=== PATIENT | female | born 1935 | race Caucasian/White ===

== ENCOUNTER 2016-09-16 22:56 | Inpatient (IN) | payer MEDICARE, OTHER ==
[~2016-09-16] VITALS: Ht 157.5 cm; Wt 61.2 kg
[2016-09-17] MEDS ORDERED: MORPHINE SULFATE 4 MG/ML, 1ML ONE (00:22)
[2016-09-17] MEDS ORDERED: CLINDAMYCIN PMX 600MG/50ML 50 ML ONE (00:22)
[2016-09-17] MEDS ORDERED: MORPHINE SULFATE 4 MG/ML, 1ML IVPush PRN (00:30)
[2016-09-17] MEDS ORDERED: CLINDAMYCIN PMX 600MG/50ML 50 ML IV ONE (00:30)
[2016-09-17 00:56] LABS: ASPARTATE AMINO TRANSFERASE 16 U/L (15-37); BLOOD UREA NITROGEN 21 mg/dL (7-18)
[2016-09-17] MEDS ORDERED: CYAN500T42 PO (02:11)
[2016-09-17] MEDS ORDERED: SOLI5TAB PO (02:11)
[2016-09-17] MEDS ORDERED: DIPH1TAB PO (02:11)
[2016-09-17] MEDS ORDERED: ESTR10TA PO (02:11)
[2016-09-17] MEDS ORDERED: CHOL2000 PO (02:11)
[2016-09-17] MEDS ORDERED: [UNRECOGNIZED DRUG - OTHER] PO (02:11)
[2016-09-17] MEDS ORDERED: HYDR12.53 PO (02:11)
[2016-09-17] MEDS ORDERED: OS CAL PO (02:11)
[2016-09-17] MEDS ORDERED: POTA20PA8 PO (02:11)
[2016-09-17] MEDS ORDERED: LEVO50TA5 PO (02:11)
[2016-09-17] MEDS ORDERED: METH500T5 PO (02:11)
[2016-09-17] MEDS ORDERED: DIPHENOXYLATE/ATROPINE TABLET PO SCH (02:30)
[2016-09-17] MEDS ORDERED: NS + 20MEQ KCL 1,000 ML IV SCH (02:31)
[2016-09-17] MEDS ORDERED: morphine SULFATE 10 MG/ML, 1ML IVPush PRN (03:00)
[2016-09-17] MEDS ORDERED: POLYETHYLENE GLYCOL 17 GM PACKET PO PRN (03:00)
[2016-09-17] MEDS ORDERED: DOCUSATE 100 MG CAPSULE PO PRN (03:00)
[2016-09-17] MEDS ORDERED: ACETAMINOPHEN 325 MG TABLET PO PRN (03:00)
[2016-09-17] MEDS ORDERED: ONDANSETRON 2MG/ML, 2ML IVPush PRN (03:00)
[2016-09-17 03:32] VITALS: BP 101/57
[2016-09-17] MEDS: ENOXAPARIN 30 MG/0.3 ML SQ SCH (04:42)
[2016-09-17] MEDS: CLINDAMYCIN PMX 600MG/50ML 50 ML IV SCH ×3 (06:34→22:10)
[2016-09-17] MEDS: LEVOTHYROXINE 50 MCG TABLET PO SCH (06:34)
[2016-09-17 08:30] VITALS: BP 106/55
[2016-09-17] MEDS: ESTRADIOL 10 MCG HOMEMEDPO SCH (09:00)
[2016-09-17] MEDS ORDERED: POTASSIUM CHLORIDE 20 MEQ PACKET PO SCH (09:00)
[2016-09-17] MEDS ORDERED: VANCOMYCIN PER PHARMACY MC PRN (10:00)
[2016-09-17] MEDS ORDERED: PHARMACOKINETIC MONITORING MC PRN (10:30)
[2016-09-17] MEDS ORDERED: PHARMACOKINETIC CONSULTATION MC ONE (10:30)
[2016-09-17] MEDS: OXYBUTYNIN CHLORIDE 5 MG TABLET PO SCH ×2 (10:46→22:10)
[2016-09-17] MEDS: SENNA/DOCUSATE TABLET PO SCH (10:46)
[2016-09-17] MEDS: CEFTRIAXONE PMX 1GM/50ML 50 ML IV SCH (10:59)
[2016-09-17] MEDS ORDERED: GADOBUTROL 7.5 MMOL/7.5 ML PFS ONE (11:53)
[2016-09-17] MEDS: VANCOMYCIN PMX 1GM/200ML 200 ML IVPB SCH (13:15)
[2016-09-17 14:01] VITALS: BP 101/64
[2016-09-17 20:12] VITALS: BP 108/65
[2016-09-18 02:31] VITALS: BP 101/59
[2016-09-18] MEDS: ENOXAPARIN 30 MG/0.3 ML SQ SCH (02:45)
[2016-09-18] MEDS: CLINDAMYCIN PMX 600MG/50ML 50 ML IV SCH ×4 (03:28→21:11)
[2016-09-18] MEDS: LEVOTHYROXINE 50 MCG TABLET PO SCH (05:38)
[2016-09-18 05:52] LABS: ASPARTATE AMINO TRANSFERASE 15 U/L (15-37); BLOOD UREA NITROGEN 22 mg/dL (7-18)
[2016-09-18 07:30] VITALS: BP 103/51
[2016-09-18] MEDS: OXYBUTYNIN CHLORIDE 5 MG TABLET PO SCH ×2 (07:30→20:42)
[2016-09-18] MEDS ORDERED: MAGNESIUM SULFATE PMX 2GM/50ML 50 ML IV ONE (08:00)
[2016-09-18] MEDS: SENNA/DOCUSATE TABLET PO SCH (09:00)
[2016-09-18] MEDS: POTASSIUM CHLORIDE 20 MEQ PACKET PO SCH (09:25)
[2016-09-18] MEDS: CEFTRIAXONE PMX 1GM/50ML 50 ML IV SCH (10:59)
[2016-09-18] MEDS: VANCOMYCIN PMX 1GM/200ML 200 ML IVPB SCH (11:52)
[2016-09-18] MEDS: MAGNESIUM OXIDE 400 MG TABLET PO SCH (12:56)
[2016-09-18 13:16] VITALS: BP 98/48
[2016-09-18 19:53] VITALS: BP 121/73
[2016-09-18] MEDS: DIPHENOXYLATE/ATROPINE TABLET PO PRN (21:12)
[2016-09-19 01:51] VITALS: BP 128/70
[2016-09-19] MEDS ORDERED: ENOXAPARIN 40 MG/0.4 ML SQ SCH (03:00)
[2016-09-19] MEDS: CLINDAMYCIN PMX 600MG/50ML 50 ML IV SCH ×3 (03:39→15:53)
[2016-09-19 05:40] LABS: BLOOD UREA NITROGEN 17 mg/dL (7-18)
[2016-09-19] MEDS: LEVOTHYROXINE 50 MCG TABLET PO SCH (06:16)
[2016-09-19 08:11] VITALS: BP 130/73
[2016-09-19] MEDS: OXYBUTYNIN CHLORIDE 5 MG TABLET PO SCH (09:00)
[2016-09-19] MEDS: SENNA/DOCUSATE TABLET PO SCH (09:00)
[2016-09-19] MEDS: POTASSIUM CHLORIDE 20 MEQ PACKET PO SCH (09:00)
[2016-09-19] MEDS: ESTRADIOL 10 MCG HOMEMEDPO SCH (09:00)
[2016-09-19] MEDS: MAGNESIUM OXIDE 400 MG TABLET PO SCH (09:00)
[2016-09-19] MEDS: CEFTRIAXONE PMX 1GM/50ML 50 ML IV SCH (10:58)
[2016-09-19] MEDS: VANCOMYCIN PMX 1GM/200ML 200 ML IVPB SCH (11:50)
[2016-09-19] MEDS: DIPHENOXYLATE/ATROPINE TABLET PO PRN (12:28)
[2016-09-19 12:58] VITALS: BP 116/61
[2016-09-19] MEDS ORDERED: ACID1TAB7 PO (19:38)
[2016-09-19] MEDS ORDERED: CEFD300C37 PO (19:38)
[2016-09-19] MEDS ORDERED: MUPI15CR TD (19:38)
[2016-09-19] MEDS ORDERED: SULF1TAB3 PO (19:38)
[2016-09-19] MEDS ORDERED: MAGN400T26 PO (19:38)
[2016-09-19 19:53] VITALS: BP 173/76
[2016-09-19] MEDS ORDERED: LACTOBACILLUS CHEW TABLET PO SCH (21:00)
[2016-09-19] MEDS ORDERED: SULFAMETH./TRIMETHOPRIM DS 800MG/160MG TABLET PO SCH (21:00)
[2016-09-19] MEDS ORDERED: CEFDINIR 300 MG CAPSULE PO SCH (21:00)
== END 2016-09-20 07:00 | disposition home or self-care (01) | DRG 579 ==
LOC: ED 23:59 → EDIP 09-17 02:01 → SUATTDRO 09-17 02:19 → 4NOR 09-17 03:14
PROVIDERS: ADMIT Family Medicine; ATTEND Internal Medicine
PROC: 0KBV0ZZ Excision of Right Foot Muscle, Open Approach (ICD-10-PCS; principal; 2016-09-19)
DX: L03.115 Cellulitis of right lower limb (principal); N17.0 Acute kidney failure with tubular necrosis; L02.611 Cutaneous abscess of right foot; L97.519 Non-pressure chronic ulcer of other part of right foot with unspecified severity; E03.9 Hypothyroidism, unspecified; E87.6 Hypokalemia; S91.301A Unspecified open wound, right foot, initial encounter; I10 Essential (primary) hypertension; M19.90 Unspecified osteoarthritis, unspecified site; E86.0 Dehydration; E83.42 Hypomagnesemia; R19.7 Diarrhea, unspecified; G62.9 Polyneuropathy, unspecified; Z79.899 Other long term (current) drug therapy; Z88.0 Allergy status to penicillin; Z88.5 Allergy status to narcotic agent; Z91.041 Radiographic dye allergy status; Z83.3 Family history of diabetes mellitus
CPT/HCPCS: 36415; 80048; 80053; 83605; 83735; 84100; 84145; 85025; 85651; 87040; 87070; 87077; 87186; 87205; 87324; 96365; 96375; A9585; J0696; J1650; J3370; J3480; J3475

== ENCOUNTER 2019-04-02 13:34 | Inpatient (IN) | payer MEDICARE ==
[~2019-04-02] VITALS: Ht 157.5 cm; Wt 67.7 kg
[~2019-04-02 13:34] MED LIST: ACID1TAB7 PO; CEFD300C37 PO; CHOL2000 PO; CYAN500T42 PO; DIPH1TAB PO; ESTR10TA PO; HYDR12.517 PO; LEVO50TA5 PO; MAGN400T26 PO; METH500T5 PO; MUPI15CR TD; OS CAL PO; POTA20PA25 PO; SOLI5TAB2 PO; SULF-169 PO; SULF1TAB23 PO; [UNRECOGNIZED DRUG - OTHER] PO
[2019-04-02 14:35] LABS: BASOPHILS # (AUTO) 0.07 x10^3/uL (0-0.1); BASOPHILS % (AUTO) 1 % (0-1); EOSINOPHILS # (AUTO) 0.07 x10^3/uL (0-0.4); EOSINOPHILS % (AUTO) 1 % (1-7); LYMPHOCYTES # (AUTO) 1.73 x10^3/uL (1-3.4); LYMPHOCYTES % (AUTO) 24 % (22-44); MD NO; MEAN CORPUSCULAR HEMOGLOBIN 30.1 pg (27.0-34.8); MEAN CORPUSCULAR HGB CONC 33.2 g/dL (32.4-35.8); MEAN CORPUSCULAR VOLUME 90.4 fL (80-100); MEAN PLATELET VOLUME 7.7 fL (7.4-10.4); MONOCYTES % (AUTO) 8 % (2-9); NEUTROPHILS # (AUTO) 4.73 x10^3/uL (1.8-6.8); NEUTROPHILS % (AUTO) 66 % (42-75); PLATELET COUNT 393 x10^3/uL (130-400); RED BLOOD COUNT 4.18 x10^6/uL (3.82-5.3)
[2019-04-02 14:46] LABS: ALANINE AMINOTRANSFERASE 11 U/L (12-78); ALBUMIN 2.9 g/dL (3.4-5.0); ANION GAP 7 mmol/L (5-15); CALCIUM 8.7 mg/dL (8.5-10.1); CHLORIDE 108 mmol/L (98-107); CREATININE 0.87 mg/dL (0.55-1.02)
[2019-04-02 14:50] LABS: ALKALINE PHOSPHATASE 121 U/L (45-117); BILIRUBIN,TOTAL 0.4 mg/dL (0.2-1.0); TOTAL PROTEIN 7.2 g/dL (6.4-8.2); TROPONIN I < 0.015 ng/mL (0.000-0.045)
--- NOTE | 2019-04-02 14:53 | NUR ---
URINE COLLECTED VIA STRAIGHT CATH AND SENT TO LAB.
[2019-04-02] MEDS ORDERED: MECLIZINE CHEWABLE 25 MG TAB ONE (14:54)
[2019-04-02] MEDS ORDERED: MECLIZINE CHEWABLE 25 MG TAB PO ONE (15:00)
--- NOTE | 2019-04-02 15:00 | NUR ---
THIS IS AN 83 YO F W/ C/O DIZZINESS X2 DAYS. WORSENS WHEN STANDING. DENIES CP/SOB. RESP EVEN AND UNLABORED. VS STABLE. NADN. A&OX2 BASELINE. FAMILY AT BEDSIDE FOR HX. CALL LIGHT INR EACH. DENIES FURTHER NEEDS AT THIS TIME.
[2019-04-02 15:35] LABS: CULTURE INDICATED? YES; MICROSCOPIC INDICATED
--- NOTE | 2019-04-02 15:53 | NUR ---
ORTHOSTATIC VITALS DONE BY MAURIZIO BODY SHOP TECHNICIAN. PT RESTING ON [facility] AWAITING RESULTS.
--- NOTE | 2019-04-02 15:59 | NUR ---
ORTHOSTATIC VITALS GIVEN TO DR. SUMMERS.
[2019-04-02] MEDS ORDERED: CEFTRIAXONE PMX 1GM/50ML 50 ML IVPB ONE (16:30)
--- NOTE | 2019-04-02 16:32 | NUR ---
PT AND FAMILY AWARE OF POC FOR DC AND ARE AGREEABLE.
--- NOTE | 2019-04-02 16:51 | NUR ---
PT FAMILY AND ERP SPOKE ABOUT PT CONDITION AND DECIDED TO HAVE PT ADMITTED FOR IV ABX. PT STATES SHE WILL STAY FOR ONE NIGHT BUT IS REFUSING TO PUT HOPSITAL GOWN ON BUT WILL ALLOW RESTART PIV.
[2019-04-02] MEDS ORDERED: DONE10TA56 PO (17:13)
[2019-04-02] MEDS ORDERED: TRIA1TAB3 PO (17:13)
[2019-04-02] MEDS ORDERED: OMEP-110 PO (17:13)
--- NOTE | 2019-04-02 17:21 | NUR ---
REPORT GIVEN TO ANNABEL KNUTSON RN. ALL QUESTIONS ANSWERED. AWAITING PT TRANSPORT.
[2019-04-02] MEDS ORDERED: CEFTRIAXONE PMX 1GM/50ML 50 ML ONE (17:24)
[2019-04-02 17:37] VITALS: BP 128/72
[2019-04-02] MEDS ORDERED: ENALAPRILAT 1.25 MG/ML, 2ML IVPush PRN (18:30)
[2019-04-02] MEDS ORDERED: MECLIZINE 12.5 MG TABLET PO PRN (18:30)
[2019-04-02] MEDS ORDERED: TRAZODONE 50MG TABLET PO PRN (18:30)
[2019-04-02] MEDS ORDERED: LIDODERM 5% PATCH TD PRN (18:30)
[2019-04-02] MEDS ORDERED: ONDANSETRON ODT 4 MG PO PRN (18:30)
[2019-04-02] MEDS ORDERED: DOCUSATE 100 MG CAPSULE PO PRN (18:30)
[2019-04-02] MEDS ORDERED: ACETAMINOPHEN 325 MG TABLET PO PRN (18:30)
[2019-04-02] MEDS ORDERED: DIPHENOXYLATE/ATROPINE TABLET PO SCH (18:30)
[2019-04-02 19:22] VITALS: BP 152/66
[2019-04-02] MEDS: POTASSIUM CHLORIDE 20 MEQ PACKET PO SCH (20:07)
[2019-04-02] MEDS: DONEPEZIL 10 MG TABLET PO SCH (20:07)
[2019-04-02] MEDS: ENOXAPARIN 40 MG/0.4 ML SQ SCH (20:07)
[2019-04-02 20:28] VITALS: BP_SYST 154; BP_SYST 173; BP_SYST 182; BP_DIAS 105; BP_DIAS 110; BP_DIAS 83
[2019-04-02] MEDS: OMEPRAZOLE 20 MG CAPSULE.DR PO SCH (21:23)
[2019-04-03] MEDS ORDERED: FLU VACC QS2019-20 36MOS UP/PF 0.5 ML IM-VACC ONE (00:30)
[2019-04-03 01:30] VITALS: BP 131/70
[2019-04-03] MEDS: LIDODERM REMOVE PATCH NOTE XX SCH (05:02)
[2019-04-03 05:18] LABS: CALCIUM 8.6 mg/dL (8.5-10.1); CHLORIDE 108 mmol/L (98-107)
[2019-04-03 05:21] LABS: ANION GAP 8 mmol/L (5-15); CREATININE 0.98 mg/dL (0.55-1.02)
[2019-04-03 05:23] LABS: BASOPHILS # (AUTO) 0.07 x10^3/uL (0-0.1); BASOPHILS % (AUTO) 1 % (0-1); EOSINOPHILS # (AUTO) 0.15 x10^3/uL (0-0.4); EOSINOPHILS % (AUTO) 2 % (1-7); LYMPHOCYTES # (AUTO) 3.49 x10^3/uL (1-3.4); LYMPHOCYTES % (AUTO) 41 % (22-44); MD NO; MEAN CORPUSCULAR HEMOGLOBIN 29.8 pg (27.0-34.8); MEAN CORPUSCULAR HGB CONC 33.1 g/dL (32.4-35.8); MEAN CORPUSCULAR VOLUME 90.1 fL (80-100); MONOCYTES # (AUTO) 0.84 x10^3/uL (0.2-0.8); MONOCYTES % (AUTO) 10 % (2-9); NEUTROPHILS # (AUTO) 3.99 x10^3/uL (1.8-6.8); NEUTROPHILS % (AUTO) 47 % (42-75); PLATELET COUNT 381 x10^3/uL (130-400); RED BLOOD COUNT 4.04 x10^6/uL (3.82-5.3); RED CELL DISTRIBUTION WIDTH 14.7 % (9.6-15.2)
[2019-04-03] MEDS: CEFTRIAXONE PMX 1GM/50ML 50 ML IV SCH ×2 (06:12→18:01)
[2019-04-03] MEDS: LEVOTHYROXINE 50 MCG TABLET PO SCH (06:12)
[2019-04-03] MEDS: OXYBUTYNIN CHLORIDE 5 MG TABLET PO SCH ×3 (08:11→20:07)
[2019-04-03] MEDS: POTASSIUM CHLORIDE 20 MEQ PACKET PO SCH ×2 (08:12→20:04)
[2019-04-03] MEDS: CYANOCOBALAMIN 1,000 MCG TABLET PO SCH (08:13)
[2019-04-03] MEDS: TRIAMTERENE-HCTZ 37.5/25 MG TABLET PO SCH (08:13)
[2019-04-03] MEDS: CHOLECALCIFEROL 1,000 UNIT TABLET PO SCH (08:13)
[2019-04-03] MEDS: MAGNESIUM OXIDE 400 MG TABLET PO SCH (08:13)
[2019-04-03] MEDS ORDERED: OMEPRAZOLE 20 MG CAPSULE.DR PO SCH (09:00)
[2019-04-03 09:25] VITALS: BP_SYST 111; BP_SYST 134; BP_SYST 152; BP_DIAS 66; BP_DIAS 77; BP_DIAS 84
[2019-04-03 12:15] VITALS: BP_SYST 123; BP_SYST 134; BP_SYST 138; BP_DIAS 66; BP_DIAS 75; BP_DIAS 82
[2019-04-03] MEDS: SODIUM CHLORIDE 0.9% 500 ML IV SCH ×2 (12:46→23:34)
[2019-04-03] MEDS ORDERED: LOPERAMIDE 2 MG CAPSULE PO ONE (18:30)
[2019-04-03] MEDS ORDERED: LOPERAMIDE 2 MG CAPSULE PO PRN (18:30)
[2019-04-03 19:29] VITALS: BP_SYST 157; BP_SYST 159; BP_SYST 163; BP_DIAS 79; BP_DIAS 83; BP_DIAS 85
[2019-04-03] MEDS: OMEPRAZOLE 20 MG CAPSULE.DR PO SCH (20:06)
[2019-04-03] MEDS: ENOXAPARIN 40 MG/0.4 ML SQ SCH (20:06)
[2019-04-03] MEDS: DONEPEZIL 10 MG TABLET PO SCH (20:06)
[2019-04-04 03:55] VITALS: BP_SYST 140; BP_SYST 161; BP_SYST 171; BP_DIAS 69; BP_DIAS 80; BP_DIAS 83
[2019-04-04] MEDS: LEVOTHYROXINE 50 MCG TABLET PO SCH (06:05)
[2019-04-04] MEDS: CEFTRIAXONE PMX 1GM/50ML 50 ML IV SCH (06:06)
[2019-04-04] MEDS: SODIUM CHLORIDE 0.9% 500 ML IV SCH (06:06)
[2019-04-04] MEDS: LIDODERM REMOVE PATCH NOTE XX SCH (06:09)
[2019-04-04 07:15] VITALS: BP 131/66
[2019-04-04] MEDS: CHOLECALCIFEROL 1,000 UNIT TABLET PO SCH (08:21)
[2019-04-04] MEDS: TRIAMTERENE-HCTZ 37.5/25 MG TABLET PO SCH (08:22)
[2019-04-04] MEDS: OMEPRAZOLE 20 MG CAPSULE.DR PO SCH (08:22)
[2019-04-04] MEDS: POTASSIUM CHLORIDE 20 MEQ PACKET PO SCH (08:22)
[2019-04-04] MEDS: CYANOCOBALAMIN 1,000 MCG TABLET PO SCH (08:22)
[2019-04-04] MEDS: OXYBUTYNIN CHLORIDE 5 MG TABLET PO SCH (08:22)
[2019-04-04] MEDS: MAGNESIUM OXIDE 400 MG TABLET PO SCH (08:22)
[2019-04-04] MEDS ORDERED: CEFD300C37 PO (09:09)
== END 2019-04-04 10:42 | disposition home or self-care (01) | DRG 690 ==
LOC: ED 14:32 → EDIP 16:44 → 3N 17:48 → DCLOUNGE 04-04 10:35
PROVIDERS: ADMIT Internal Medicine Infectious Disease; ATTEND Internal Medicine Infectious Disease
DX: N30.90 Cystitis, unspecified without hematuria (principal); H81.10 Benign paroxysmal vertigo, unspecified ear; E03.9 Hypothyroidism, unspecified; F03.90 Unspecified dementia, unspecified severity, without behavioral disturbance, psychotic disturbance, mood disturbance, and anxiety; I10 Essential (primary) hypertension; N32.81 Overactive bladder
CPT/HCPCS: 36415; 80048; 80053; 81001; 83605; 84443; 84484; 85025; 87040; 87077; 87086; 87186; 90686; 93005; 99285; G0378; J0696; J1650; J7040

== ENCOUNTER 2019-12-19 11:28 | Inpatient (IN) | payer MEDICARE ==
[~2019-12-19] VITALS: Ht 157.5 cm; Wt 78.0 kg
[~2019-12-19 11:28] MED LIST changes: +ANTIVERT PO; +ASPI-515 PO; +AZIT500T PO; +BUSP5TAB2 PO; +CRAN200C2 PO; +DONE10TA56 PO; +L.AC1CAP6 PO; +MECL12.581 PO; +OMEP-110 PO; +SOLI10TA2 PO; +TRIA1TAB3 PO
--- NOTE | 2019-12-19 11:41 | NUR ---
PT BIB EMS FOR WEAKNESS. PT WAS TREATED A MONTH AGO FOR BLADDER INFECTION. PT INCONTINET OF URINE UPON ARRIVAL. PT URINE WAS FOUL SMELLING. PT NORMALLY AMBULATORY AND WAS UNABLE TO STAND TODAY. PT HAS HX OF DEMENTIA AND PER REMSA AOX2 IS HER BASELINE. DAUGHTER IS PRESENT. PT CLEANED. MD IS BEDSIDE FOR ASSESSMENT.
--- NOTE | 2019-12-19 11:47 | NUR ---
pt's straight cath'd using sterile technique at this time. pt tolerated well. this rn walked to lab for ua.
[2019-12-19] MEDS ORDERED: ACETAMINOPHEN 650 MG SUPP ONE (11:55)
[2019-12-19] MEDS ORDERED: CEFTRIAXONE PMX 1GM/50ML 50 ML ONE (11:55)
[2019-12-19 11:58] LABS: MICROSCOPIC INDICATED
[2019-12-19] MEDS ORDERED: CEFTRIAXONE PMX 1GM/50ML 50 ML IVPB ONE (12:00)
[2019-12-19] MEDS ORDERED: SODIUM CHLORIDE 0.9% 1,000ML IVBOLUS ONE (12:00)
[2019-12-19] MEDS ORDERED: ACETAMINOPHEN 650 MG SUPP PR ONE (12:00)
--- NOTE | 2019-12-19 12:14 | NUR ---
PT MEDICATED PER EMAR. NS AND ABX INFUSING AT THIS TIME AFTER BC X 2. PT TOLERATED WELL.
[2019-12-19 12:24] LABS: BASOPHILS % (AUTO) 0 % (0-1); EOSINOPHILS % (AUTO) 0 % (1-7); LYMPHOCYTES % (AUTO) 10 % (22-44); MEAN CORPUSCULAR HEMOGLOBIN 29.3 pg (27.0-34.8); MEAN CORPUSCULAR HGB CONC 32.8 g/dL (32.4-35.8); MEAN PLATELET VOLUME 7.3 fL (7.4-10.4); MONOCYTES % (AUTO) 12 % (2-9); NEUTROPHILS % (AUTO) 77 % (42-75); PLATELET COUNT 400 x10^3/uL (130-400); RED BLOOD COUNT 4.58 x10^6/uL (3.82-5.3); RED CELL DISTRIBUTION WIDTH 15.3 % (9.6-15.2)
[2019-12-19 12:33] LABS: MD NO
[2019-12-19 12:54] LABS: ALANINE AMINOTRANSFERASE 16 U/L (12-78); ALBUMIN 3.2 g/dL (3.4-5.0); ANION GAP 8 mmol/L (5-15); CHLORIDE 105 mmol/L (98-107)
[2019-12-19 12:56] LABS: ALKALINE PHOSPHATASE 151 U/L (45-117); BILIRUBIN,TOTAL 0.5 mg/dL (0.2-1.0); TOTAL PROTEIN 8.3 g/dL (6.4-8.2)
--- NOTE | 2019-12-19 13:20 | NUR ---
pt resting in gurney. resps even and unlabored. bp/spo2 monitors in place. call light within reach. family at bedside.
[2019-12-19] MEDS ORDERED: ACETAMINOPHEN 325 MG TABLET PO PRN (14:00)
[2019-12-19] MEDS ORDERED: ONDANSETRON ODT 4 MG PO PRN (14:00)
[2019-12-19] MEDS ORDERED: MELATONIN 5 MG TABLET PO PRN (14:00)
[2019-12-19] MEDS: ENOXAPARIN 40 MG/0.4 ML SQ SCH (14:00)
[2019-12-19] MEDS ORDERED: ONDANSETRON 2MG/ML, 2ML IVPush PRN (14:00)
[2019-12-19] MEDS ORDERED: DIPHENOXYLATE/ATROPINE TABLET PO PRN (14:00)
[2019-12-19] MEDS ORDERED: ENOXAPARIN 40 MG/0.4 ML ONE (14:03)
--- NOTE | 2019-12-19 14:25 | NUR ---
pt medicated per emar. pt tolerated well. resps even and unlabored. bp/spo2 monitors in place. call light within reach.
--- NOTE | 2019-12-19 15:25 | NUR ---
pt resting in gurney. resps even and unlabored. family at bedside.
--- NOTE | 2019-12-19 16:53 | NUR ---
pt resting in gurney. resps even and unlabored. family at bedside.
--- NOTE | 2019-12-19 17:28 | NUR ---
hospital bed ordered at this time.
[2019-12-19] MEDS: SODIUM CHLORIDE 0.9% 1,000 ML IV SCH (18:00)
[2019-12-19] MEDS ORDERED: ACETAMINOPHEN 325 MG TABLET ONE ×2 (18:11→18:46)
--- NOTE | 2019-12-19 18:23 | NUR ---
pt resting in hospital bed at this time. resps even and unlabored. bp/spo2 monitors in place. call light within reach. pt's daughter at bedside.
--- NOTE | 2019-12-19 18:24 | NUR ---
diet tray ordered at this time.
--- NOTE | 2019-12-19 19:01 | NUR ---
report given to karla loya.
--- NOTE | 2019-12-19 19:08 | NUR ---
Report received from RUDDY Valencia. This RN to assume care.
--- NOTE | 2019-12-19 19:53 | NUR ---
Patient resting in hospital bed with no complaints. Daughter at bedside. Patient did not eat meal; states she is not hungry at this time. Cleaned up patient's room. Initiated fluids per may. Provided water.
[2019-12-20] MEDS: MECLIZINE 12.5 MG TABLET PO SCH ×3 (00:32→20:48)
[2019-12-20] MEDS: DONEPEZIL 10 MG TABLET PO SCH ×2 (00:32→20:47)
[2019-12-20] MEDS: POTASSIUM CHLORIDE 10 MEQ TABLET.ER PO SCH ×3 (00:33→20:47)
[2019-12-20] MEDS: BUSPIRONE 5 MG TABLET PO SCH ×3 (00:33→20:47)
--- NOTE | 2019-12-20 00:33 | NUR ---
Multiple attempts to admin patient's meds. Attempted to crush them and put them in apple sauce and pudding. Patient continuously refusing.
--- NOTE | 2019-12-20 02:09 | NUR ---
Patient sleeping in hospital bed. Respirations even and unlabored.
--- NOTE | 2019-12-20 03:00 | NUR ---
Patient c/o being cold. Provided bear paw and extra blankets.
[2019-12-20] MEDS: SODIUM CHLORIDE 0.9% 1,000 ML IV SCH ×3 (04:00→22:08)
[2019-12-20 04:22] LABS: BASOPHILS % (AUTO) 1 % (0-1); EOSINOPHILS % (AUTO) 0 % (1-7); LYMPHOCYTES % (AUTO) 8 % (22-44); MEAN CORPUSCULAR HEMOGLOBIN 29.4 pg (27.0-34.8); MEAN CORPUSCULAR HGB CONC 32.5 g/dL (32.4-35.8); MEAN PLATELET VOLUME 7.2 fL (7.4-10.4); MONOCYTES % (AUTO) 10 % (2-9); NEUTROPHILS % (AUTO) 82 % (42-75); PLATELET COUNT 357 x10^3/uL (130-400); RED BLOOD COUNT 4.17 x10^6/uL (3.82-5.3); RED CELL DISTRIBUTION WIDTH 15.6 % (9.6-15.2)
[2019-12-20 04:24] LABS: MD NO
[2019-12-20 04:33] LABS: ALANINE AMINOTRANSFERASE 17 U/L (12-78); ALBUMIN 2.7 g/dL (3.4-5.0); ANION GAP 7 mmol/L (5-15); CALCIUM 8.4 mg/dL (8.5-10.1); CHLORIDE 110 mmol/L (98-107); CREATININE 1.05 mg/dL (0.55-1.02)
[2019-12-20 04:35] LABS: ALKALINE PHOSPHATASE 125 U/L (45-117); BILIRUBIN,TOTAL 0.4 mg/dL (0.2-1.0); TOTAL PROTEIN 7.3 g/dL (6.4-8.2)
--- NOTE | 2019-12-20 04:43 | NUR ---
Patient repeatedly saying, "help me." Per daughter, that is normal for patient. Provided drinks to patient and reassured her.
[2019-12-20] MEDS: LEVOTHYROXINE 50 MCG TABLET PO SCH (06:19)
--- NOTE | 2019-12-20 06:20 | NUR ---
Patient compliant with 6am med. Provided tea. Patient resting in hospital bed with no complaints. Respirations even and unlabored.
--- NOTE | 2019-12-20 06:46 | NUR ---
BEDSIDE REPORT RECEIVED FROM RAMONA FOX
--- NOTE | 2019-12-20 07:03 | NUR ---
PT SITTING UPRIGHT ON HOSPITAL BED, PT DENIES ANY NEEDS AT THIS TIME. PT IN NAD. FALL PRECAUTIONS IN PLACE. CALL LIGHT AND PERSONAL BELONGINGS WITHIN REACH. WILL CONTIUE TO MONITOR.
[2019-12-20] MEDS ORDERED: OMEPRAZOLE 20 MG CAPSULE.DR ONE (07:43)
[2019-12-20] MEDS: OMEPRAZOLE 20 MG CAPSULE.DR PO SCH (07:55)
--- NOTE | 2019-12-20 08:01 | NUR ---
PT SITTING UPRIGHT ON HOSPITAL BED AND GIVEN BREAKFAST TRAY, PT DENIES ANY NEEDS AT THIS TIME. PT IN NAD. FALL PRECAUTIONS IN PLACE. CALL LIGHT AND PERSONAL BELONGINGS WITHIN REACH. WILL CONTIUE TO MONITOR.
[2019-12-20] MEDS: ASPIRIN 81 MG TABLET EC PO SCH (08:40)
[2019-12-20] MEDS ORDERED: ASPIRIN 81 MG TABLET EC ONE (08:40)
--- NOTE | 2019-12-20 09:00 | NUR ---
PT SITTING UPRIGHT ON HOSPITAL BED, PT DENIES ANY NEEDS AT THIS TIME. PT DID NOT WANT ANY OF BREAKFAST TRAY. PT IN NAD. FALL PRECAUTIONS IN PLACE. CALL LIGHT AND PERSONAL BELONGINGS WITHIN REACH. WILL CONTIUE TO MONITOR.
--- NOTE | 2019-12-20 10:02 | NUR ---
PT SITTING UPRIGHT ON HOSPITAL BED WITH EYES CLOSED, PT DENIES ANY NEEDS AT THIS TIME. PURE WICK IN PLACE. PT IN NAD. FALL PRECAUTIONS IN PLACE. CALL LIGHT AND PERSONAL BELONGINGS WITHIN REACH. WILL CONTIUE TO MONITOR.
--- NOTE | 2019-12-20 11:04 | NUR ---
PT UPRIGHT ON HOSPITAL BED WITH GRANDDAUGHTER AT BEDSIDE. PT DID NOT EAT ANY OF HER BREAKFAST MEAL TRAY, PT FAMILY WILL BRING IN PATIENTS FAVORITE SOUP SO SHE WILL EAT. PT PROVIDED FRESH BLANKET. DENIES ANY OTHER NEEDS AT THIS TIME. CALL LIGHT AND PERSONAL BELONGINGS WITHIN REACH. WILL CONTINUE TO MONITOR.
--- NOTE | 2019-12-20 11:48 | NUR ---
LINEN AND PURE WICK CHANGE DONE, DUE TO PURE WICK DISPLACEMENT AND WET LINENS. PT PLACED IN YELLOW GOWN, FAMILY AT BEDSIDE WITH LUNCH. PT REMAINS A&OX2 BUT FREQUENTLY ASKS "WHAT ARE YOU DOING" AND "HELP ME!". COOPERATIVE WITH STAFF AFTER REASSURANCE GIVEN. FALL PRECAUTIONS IN PLACE. CALL LIGHT WITHIN REACH. NO ADDITIONAL NEEDS AT THIS TIME.
[2019-12-20] MEDS ORDERED: CEFTRIAXONE PMX 1GM/50ML 50 ML ONE (12:00)
[2019-12-20] MEDS: CEFTRIAXONE PMX 1GM/50ML 50 ML IV SCH (12:05)
--- NOTE | 2019-12-20 12:27 | NUR ---
Pt to be admitted to medical, room 351. Report called to Lisa.
[2019-12-20 14:00] VITALS: BP 145/71
[2019-12-20] MEDS: ENOXAPARIN 40 MG/0.4 ML SQ SCH (14:00)
[2019-12-20 19:44] VITALS: BP 101/58
[2019-12-21 04:55] VITALS: BP 144/72
[2019-12-21 05:34] LABS: BASOPHILS % (AUTO) 1 % (0-1); EOSINOPHILS % (AUTO) 2 % (1-7); LYMPHOCYTES % (AUTO) 22 % (22-44); MEAN CORPUSCULAR HEMOGLOBIN 29.3 pg (27.0-34.8); MEAN CORPUSCULAR HGB CONC 32.6 g/dL (32.4-35.8); MEAN PLATELET VOLUME 7.5 fL (7.4-10.4); MONOCYTES % (AUTO) 12 % (2-9); NEUTROPHILS % (AUTO) 64 % (42-75); PLATELET COUNT 317 x10^3/uL (130-400); RED BLOOD COUNT 3.85 x10^6/uL (3.82-5.3); RED CELL DISTRIBUTION WIDTH 15.5 % (9.6-15.2)
[2019-12-21] MEDS: LEVOTHYROXINE 50 MCG TABLET PO SCH (05:38)
[2019-12-21 05:39] LABS: ANION GAP 6 mmol/L (5-15); CHLORIDE 110 mmol/L (98-107); CREATININE 0.86 mg/dL (0.55-1.02)
[2019-12-21 05:56] LABS: MD NO
[2019-12-21] MEDS: BUSPIRONE 5 MG TABLET PO SCH (07:41)
[2019-12-21] MEDS: OMEPRAZOLE 20 MG CAPSULE.DR PO SCH (07:41)
[2019-12-21] MEDS: POTASSIUM CHLORIDE 10 MEQ TABLET.ER PO SCH (07:42)
[2019-12-21] MEDS: ASPIRIN 81 MG TABLET EC PO SCH (07:42)
[2019-12-21] MEDS: MECLIZINE 12.5 MG TABLET PO SCH (07:42)
[2019-12-21 07:48] VITALS: BP 134/75
[2019-12-21] MEDS ORDERED: CEFD300C37 PO (11:58)
[2019-12-21 12:19] VITALS: BP 158/69
[2019-12-21] MEDS: CEFTRIAXONE PMX 1GM/50ML 50 ML IV SCH (13:13)
[2019-12-21] MEDS: ENOXAPARIN 40 MG/0.4 ML SQ SCH (14:00)
== END 2019-12-21 15:56 | disposition home or self-care (01) | DRG 689 ==
LOC: ED 11:53 → SUATTDRO 13:18 → EDIP 14:15 → 3N 12-20 12:59
PROVIDERS: ADMIT Internal Medicine; ATTEND Internal Medicine
PROC: 0T9B70Z Drainage of Bladder with Drainage Device, Via Natural or Artificial Opening (ICD-10-PCS; principal; 2019-12-19)
DX: N39.0 Urinary tract infection, site not specified (principal); G92 Toxic encephalopathy; N17.0 Acute kidney failure with tubular necrosis; F05 Delirium due to known physiological condition; Z16.11 Resistance to penicillins; Z16.23 Resistance to quinolones and fluoroquinolones; B96.20 Unspecified Escherichia coli [E. coli] as the cause of diseases classified elsewhere; E03.9 Hypothyroidism, unspecified; E86.0 Dehydration; F03.90 Unspecified dementia, unspecified severity, without behavioral disturbance, psychotic disturbance, mood disturbance, and anxiety; I10 Essential (primary) hypertension; K21.9 Gastro-esophageal reflux disease without esophagitis; Z66 Do not resuscitate; Z87.440 Personal history of urinary (tract) infections; Z88.5 Allergy status to narcotic agent; Z88.0 Allergy status to penicillin; Z91.041 Radiographic dye allergy status
CPT/HCPCS: 36415; 71045; 80048; 80053; 81001; 83605; 83735; 84145; 85025; 87040; 87077; 87086; 87186; 96365; G0378; J0696; J1650; J7030